=== PATIENT | male | born 1940 | race Caucasian/White ===

== ENCOUNTER → 2016-09-06 | Outpatient (CLI) | payer OTHER, MEDICARE ==
[~2016-09-06] MED LIST: ADULT LOW STREN81 M3 PO; COZAAR100 MG PO; LASIX40 MG PO; LEVOTHROID,SY0.15 MG PO; PERCOCET; PLAVIX75 MG PO; SIMVASTATIN40 MG PO
== END | disposition home or self-care (01) ==
DX: M17.12 Unilateral primary osteoarthritis, left knee (principal); R26.2 Difficulty in walking, not elsewhere classified; M62.81 Muscle weakness (generalized); M25.662 Stiffness of left knee, not elsewhere classified
CPT/HCPCS: 97110 GP; 97150 GO; 97161 GP; 97165 GO; G8978 GP; G8979 GP; G8980 GP; G8987 GO; G8988 GO; G8989 GO

== ENCOUNTER 2016-10-11 05:35 | Inpatient (IN) | payer OTHER, MEDICARE ==
[~2016-10-11] VITALS: Ht 172.7 cm; Wt 117.0 kg
[~2016-10-11 05:35] MED LIST changes: +ASPIR 8181 M1 PO; +IRON325 M1 PO; +LEVO-T100 MCG PO
[2016-10-11 06:24] VITALS: BP 144/78
[2016-10-11] MEDS ORDERED: PROAIR HFA8.5 GM IH (06:43)
[2016-10-11 10:41] VITALS: BP 142/85
[2016-10-11 10:53] LABS: HEMATOCRIT 40.2 % (38.0-50.0); MCH 30.6 PG (29.0-34.0); MCHC 31.8 G/DL (30.0-36.0); MCV 96.2 FL (86-99); PLATELET COUNT 182 K/uL (156-360); RBC DIS.WIDTH-CV 13.8 % (11.8-14.6); RBC DIS.WIDTH-SD 49.1 % (39-53); RED BLOOD COUNT 4.18 M/uL (4.00-5.50); WHITE BLOOD COUNT 9.2 K/uL (4.1-10.2)
[2016-10-11 12:10] VITALS: BP 142/85
[2016-10-11 20:30] VITALS: BP 169/91
[2016-10-12 00:17] VITALS: BP 142/87
[2016-10-12 04:28] VITALS: BP 138/81
[2016-10-12 05:49] LABS: ANION GAP 7 MEQ/L (2-14); CHLORIDE 102 MEQ/L (99-109); GFR ESTIMATE (CALCULATED) > 59 mL/min/; GLUCOSE 110 mg/dL (70-99); POTASSIUM 4.6 MEQ/L (3.7-5.4); SAMPLE HEMOLYSIS CHECK 0; SAMPLE ICTERIC CHECK 0; SAMPLE LIPEMIA CHECK 0; SODIUM 134 MEQ/L (136-147); UREA NITROGEN (BUN) 13 mg/dL (9-23)
[2016-10-12 08:00] VITALS: BP 159/84
[2016-10-12 12:19] VITALS: BP 153/76
[2016-10-12 16:04] VITALS: BP 115/70
[2016-10-12 20:00] VITALS: BP 113/63
[2016-10-13 00:25] VITALS: BP 114/70
[2016-10-13 04:30] VITALS: BP 111/58
[2016-10-13 05:45] LABS: HEMATOCRIT 32.9 % (38.0-50.0); MCV 96.2 FL (86-99)
[2016-10-13 06:55] LABS: ANION GAP 7 MEQ/L (2-14); CHLORIDE 101 MEQ/L (99-109); GFR ESTIMATE (CALCULATED) 53 mL/min/; GLUCOSE 95 mg/dL (70-99); POTASSIUM 4.4 MEQ/L (3.7-5.4); SAMPLE HEMOLYSIS CHECK 0; SAMPLE ICTERIC CHECK 0; SAMPLE LIPEMIA CHECK 0; SODIUM 135 MEQ/L (136-147)
[2016-10-13 07:06] LABS: UREA NITROGEN (BUN) 22 mg/dL (9-23)
[2016-10-13 08:28] VITALS: BP 114/67
[2016-10-13] MEDS ORDERED: SENNA PLUS TAB1 EACH PO (08:28)
[2016-10-13] MEDS ORDERED: ENDOCET 5-3251 EACH PO (08:28)
[2016-10-13] MEDS ORDERED: CELECOXIB200 MG PO (08:28)
[2016-10-13] MEDS ORDERED: LOVENOX40 MG/0.4 SC (08:29)
[2016-10-13 11:43] VITALS: BP 149/70
[2016-10-13 14:52] VITALS: BP 122/68
== END 2016-10-13 14:53 | DRG 470 ==
LOC: 2SOUTH 05:35 → 3WEST 10:14 → 2SOUTH 11:43 → 3WEST 10-13 14:53
PROVIDERS: Orthopaedic Surgery; Physician Assistant
PROC: 0SRD0J9 Replacement of Left Knee Joint with Synthetic Substitute, Cemented, Open Approach (ICD-10-PCS; principal; 2016-10-11)
DX: M17.12 Unilateral primary osteoarthritis, left knee (principal); M25.562 Pain in left knee; E03.9 Hypothyroidism, unspecified; I10 Essential (primary) hypertension; E78.5 Hyperlipidemia, unspecified; I25.2 Old myocardial infarction
CPT/HCPCS: 73560; 80048; 85014; 85018; 85027; 94640; 94799; 99202; J0131; J0690; J1170; J1650; J2250; J7050

== ENCOUNTER 2016-11-29 04:06 | Emergency (ER) | payer OTHER, MEDICARE ==
[~2016-11-29] VITALS: Ht 177.8 cm; Wt 110.5 kg
[~2016-11-29 04:06] MED LIST changes: +CELECOXIB200 MG PO; +ENDOCET 5-3251 EACH PO; +LOVENOX40 MG/0.4 SC; +PROAIR HFA8.5 GM IH; +SENNA PLUS TAB1 EACH PO
[2016-11-29] MEDS ORDERED: CLINDAMYCIN HC150 MG PO (05:22)
[2016-11-29 06:19] VITALS: BP 143/92
== END 2016-11-29 06:22 ==
LOC: EME → EDBD 04:06 → EME 06:22
PROC: 2Y41X5Z Packing of Nasal Region using Packing Material (ICD-10-PCS; principal; 2016-11-29)
DX: R04.0 Epistaxis (principal); G89.29 Other chronic pain; I25.2 Old myocardial infarction; K21.9 Gastro-esophageal reflux disease without esophagitis; Z95.5 Presence of coronary angioplasty implant and graft
CPT/HCPCS: 99281; 99284